=== PATIENT | male | born 1940 | race Caucasian/White ===

== ENCOUNTER 2021-10-26 07:53 | Observation (INO) ==
[2021-10-26 08:28] LABS: Basophils % 0.2 %; Eosinophils # 0.2 K/mcL (0.0-0.6); Eosinophils % 1.8 %; Hematocrit 41.8 % (37.5-50.1); Hemoglobin 14.5 g/dL (12.9-16.9); Immature Granulocytes % 0.2 % (0-4); Lymphocytes # 2.6 K/mcL (0.6-4.6); Lymphocytes % 26.5 %; Mean Corpuscular HGB Conc 34.7 g/dL (31.6-35.5); Mean Corpuscular Hemoglobin 33.9 pg (28.0-33.3); Mean Corpuscular Volume 97.7 fL (83.0-100.0); Mean Platelet Volume 9.1 fL (9.4-12.4); Monocytes # 0.7 K/mcL (0.0-1.3); Monocytes % 6.7 %; Neutrophils # 6.2 K/mcL (1.6-8.9); Platelet Count 143 K/mcL (140-400); Red Blood Count 4.28 M/mcL (4.19-5.50); Red Cell Distribution Width 12.2 % (11.5-14.5); Segmented Neutrophils % 64.6 %; White Blood Count 9.7 K/mcL (4.3-11.1)
[2021-10-26] MEDS ORDERED: 0.9 % Sodium Chloride 500 ML IVC ONE (08:46)
[2021-10-26 08:48] LABS: Potassium 3.8 mEq/L (3.5-5.1)
[2021-10-26 09:05] LABS: Magnesium 1.7 mg/dL (1.6-2.6)
[2021-10-26 09:08] LABS: INR 1.3; Prothrombin Time 14.3 Seconds (9.4-12.1)
[2021-10-26 09:10] LABS: Activated Partial Thrombo Time 37.1 Seconds (26.0-36.0)
[2021-10-26 09:33] LABS: Thyroid Stimulating Hormone 1.46 mcIU/mL (0.340-5.600); Troponin I 0.77 ng/mL (< 0.04)
[2021-10-26] MEDS ORDERED: *HR* Metoprolol 5 MG/5 ML VIAL IVP ONE (09:34)
[2021-10-26] MEDS ORDERED: Iopamidol - 370 500 ML MLS IVP ONE (09:36)
[2021-10-26] MEDS: DilTIAZem 50 MG/50 ML IV.SOLN IVC SCH ×2 (11:09→17:39)
[2021-10-26] MEDS ORDERED: *HR* Heparin 5,000 UNIT/ML VIAL IVP ONE (11:36)
[2021-10-26] MEDS ORDERED: *HR* Heparin 5,000 UNIT/ML VIAL IVP PRN ×2 (11:36)
[2021-10-26] MEDS ORDERED: Heparin 25,000UNIT/250ML 1/2NS 25,000 UNIT/250 ML IV.SOLN IVC SCH (11:45)
[2021-10-26] MEDS ORDERED: Ondansetron ODT 4 MG TAB.RAPDIS SL PRN (13:02)
[2021-10-26] MEDS ORDERED: MOM Conc 10 ML UD.LIQ PO PRN (13:02)
[2021-10-26] MEDS ORDERED: Melatonin 3 MG TABLET PO PRN (13:02)
[2021-10-26] MEDS ORDERED: Mag Hydrox/Al Hydrox/Simeth 30 ML UDC PO PRN (13:02)
[2021-10-26] MEDS ORDERED: Naloxone 0.4 MG/ML INJ IVP PRN (13:02)
[2021-10-26] MEDS: Heparin 25,000UNIT/250ML 1/2NS 25,000 UNIT/250 ML IV.SOLN IVC SCH (14:49)
[2021-10-26] MEDS ORDERED: 0.9 % Sodium Chloride 1,000 ML IVC ONE (15:07)
[2021-10-26 15:35] LABS: Bilirubin,Urine Negative (Negative); Blood,Urine Negative (Negative); Clarity,Urine Clear (Clear); Color,Urine Light-Yellow (Yellow); Glucose,Urine (UA) Normal (Normal); Ketones,Urine Negative (Negative); Leukocyte Esterase,Urine Negative (Negative); Nitrite,Urine Negative (Negative); Protein,Urine Negative (Neg-Trace); Specific Gravity,Urine > 1.030 (1.010-1.025); Urobilinogen,Urine Normal (Normal)
[2021-10-26 21:16] LABS: Heparin anti-factor XA UFH 0.74 IU/mL (0.30-0.70)
[2021-10-26 21:45] LABS: Activated Partial Thrombo Time 133.6 Seconds (26.0-36.0)
[2021-10-27] MEDS: Heparin 25,000UNIT/250ML 1/2NS 25,000 UNIT/250 ML IV.SOLN IVC SCH ×2 (11:00→11:45)
[2021-10-27] MEDS: carvediloL 6.25 MG TABLET PO SCH ×2 (12:17→17:53)
[2021-10-27] MEDS ORDERED: Heparin 1,000 UNITS/500 mL 500 ML ONE (13:28)
[2021-10-27] MEDS ORDERED: Iopamidol - 370 200 ML INFUS..BTL ONE (13:28)
[2021-10-27] MEDS ORDERED: *HR* Heparin 10,000 UNIT/10 ML VIAL ONE (13:28)
[2021-10-27] MEDS ORDERED: 0.9 % Sodium Chloride 2,000 ML ONE (13:28)
[2021-10-27] MEDS ORDERED: Nitroglycerin 1,000 MCG/5 ML VIAL IV ONE (13:29)
[2021-10-27] MEDS ORDERED: *HR* Midazolam HCl 2 MG/2 ML VIAL ONE (14:04)
[2021-10-27] MEDS ORDERED: *HR* FentaNYL (PF) 100 MCG/2 ML VIAL ONE (14:04)
[2021-10-27] MEDS: Aspirin Enteric Coated 81 MG Tablet PO SCH (17:54)
[2021-10-27] MEDS: Apixaban 5 MG TABLET PO SCH (20:12)
[2021-10-28] MEDS: Apixaban 5 MG TABLET PO SCH (08:32)
[2021-10-28] MEDS: carvediloL 6.25 MG TABLET PO SCH ×2 (08:32→16:47)
[2021-10-28] MEDS: Aspirin Enteric Coated 81 MG Tablet PO SCH (08:32)
[2021-10-28] MEDS ORDERED: amLODIPine 5 MG TABLET PO SCH (09:00)
[2021-10-28] MEDS ORDERED: Losartan/HCTZ 50-12.5 TABLET PO SCH (09:00)
[2021-10-28 10:06] LABS: Basophils % 0.3 %; Eosinophils # 0.1 K/mcL (0.0-0.6); Eosinophils % 1.9 %; Hematocrit 35.3 % (37.5-50.1); Immature Granulocytes % 0.3 % (0-4); Lymphocytes # 1.5 K/mcL (0.6-4.6); Mean Corpuscular HGB Conc 34.6 g/dL (31.6-35.5); Mean Corpuscular Hemoglobin 34.1 pg (28.0-33.3); Mean Corpuscular Volume 98.6 fL (83.0-100.0); Mean Platelet Volume 9.1 fL (9.4-12.4); Monocytes # 0.6 K/mcL (0.0-1.3); Monocytes % 7.8 %; Neutrophils # 5.1 K/mcL (1.6-8.9); Platelet Count 111 K/mcL (140-400); Red Blood Count 3.58 M/mcL (4.19-5.50); Red Cell Distribution Width 12.1 % (11.5-14.5); Segmented Neutrophils % 69.7 %; White Blood Count 7.3 K/mcL (4.3-11.1)
[2021-10-28 10:14] LABS: Hemoglobin 12.2 g/dL (12.9-16.9)
[2021-10-28 16:31] VITALS: BP 120/62; PULSE 82; TEMP 98; O2SAT 97
== END 2021-10-28 18:35 | disposition home or self-care (01) ==
LOC: 2NENU 07:53 → EMEROOARM 07:53 → SUATTDRO 11:41 → 2NENU 13:30
PROVIDERS: ADMIT Internal Medicine; ATTEND Registered Nurse